=== PATIENT | male | born 1990 | race Caucasian/White ===

== ENCOUNTER 2023-04-08 18:17 | Emergency (ER) | payer OTHER, SELFPAY ==
[2023-04-08 18:21] VITALS: BP 138/107; PULSE 70; RESP 20; TEMP 36.3; O2SAT 98; BMI 36.9
[2023-04-08 19:00] LABS: Clarity Urine CLEAR (CLEAR); Color Urine DK. ORANGE (YELLOW); Specific Gravity Urine >=1.030 (1.005-1.025)
[2023-04-08 19:08] LABS: pH Urine COLOR INTERFERENCE (5.0-9.0)
[2023-04-08 19:09] LABS: Glucose Urine UA COLOR INTERFERENCE mg/dL (NEGATIVE); Protein Urine COLOR INTERFERENCE mg/dL (NEG/TRACE)
[2023-04-08 19:10] LABS: Bilirubin Urine COLOR INTERFERENCE (NEGATIVE)
--- NOTE | 2023-04-08 19:10 | CT_ITS ---
The [address] [address] Patient Name: EJ DEMPSEY MRN: [id number] date: 1990 Sex: M Assigned Patient Location: ER Current Patient Location: Accession/Order Number: [id number] Exam Date: 04/08/2023 19:15 Report Date: 04/08/2023 20:00 At the request of: JAKE MARKER Procedure: CT abdomen pelvis wo con EXAMINATION: CT ABDOMEN AND PELVIS WITHOUT IV CONTRAST CLINICAL HISTORY: Right flank pain TECHNIQUE: Non-IV contrast imaging of the abdomen and pelvis was performed using standard technique, scanning from just above the dome of the diaphragm to the symphysis pubis. Unenhanced imaging is limited for the evaluation of some intra-abdominal and pelvic pathology. All CT scans at this facility use dose modulation, iterative reconstruction, and/or weight based dosing when appropriate to reduce radiation dose to as low as reasonably achievable. Contrast: IV: None COMPARISON: None. RESULT: Abdomen / Pelvis: Liver: Unremarkable. Biliary: The gallbladder is unremarkable. Spleen: No splenomegaly. Pancreas: Unremarkable. Adrenals: Normal. Kidneys: No calculus, hydronephrosis or finding to suggest a cyst or mass in the unenhanced kidney. GI Tract: No bowel dilation. Normal appendix. No diverticulosis. Lymph Nodes: No lymphadenopathy. Mesentery/peritoneum: No ascites. Retroperitoneum: No mass. Vasculature: No abdominal aortic or iliac artery aneurysm. Pelvis: No mass or ascites. 4 mm posterior urinary bladder wall calculus. Bones/Soft Tissues: No acute abnormality. Lower thorax: Unremarkable. IMPRESSION: 4 mm posterior urinary bladder wall calculus. No renal calculi or hydronephrosis. Electronically authenticated by: DENG RUIZ Date: 04/08/2023 20:00
[2023-04-08 19:11] LABS: Blood Urine COLOR INTERFERENCE (NEGATIVE); Ketones Urine COLOR INTERFERENCE mg/dL (NEGATIVE); Nitrite Urine COLOR INTERFERENCE (NEGATIVE)
[2023-04-08 19:12] LABS: Leukocyte Esterase Urine COLOR INTERFERENCE (NEGATIVE); Urine Microscopic Indicated YES; Urobilinogen Urine COLOR INTERFERENCE EU/dL (0.2-1.0)
--- NOTE | 2023-04-08 19:25 | US_ITS ---
[address] [address] Patient Name: EJ DEMPSEY MRN: [id number] date: 1990 Sex: M Assigned Patient Location: ER Current Patient Location: Accession/Order Number: [id number] Exam Date: 04/08/2023 19:26 Report Date: 04/08/2023 20:16 At the request of: JAKE LOPEZ Procedure: US scrotum EXAMINATION: SCROTAL ULTRASOUND WITH DOPPLER IMAGING HISTORY: Right testicular pain TECHNIQUE: Sonography of the scrotal contents with color flow and spectral Doppler imaging of the testicular vasculature was performed. Images were obtained and stored in a permanent archive. COMPARISON: None RESULT: RIGHT SCROTUM: Right testis: 4.4 x 1.9 x 3.0 cm Homogeneous with no calcifications or mass. Normal intratesticular arterial and venous flow with normal spectral waveforms. Epididymis: Normal Vascular flow on Color Doppler is symmetric to the contralateral side Hydrocele: moderate hydrocele present; 3.3 x 0.9 x 0.7 cm Varicocele: absent LEFT SCROTUM: Left testis: 4.0 x 2.2 x 2.4 cm Homogeneous with no calcifications or mass. Normal intratesticular arterial and venous flow with normal spectral waveforms. Epididymis: Normal Vascular flow on Color Doppler is symmetric to the contralateral side Hydrocele: none Varicocele: present IMPRESSION: Small left varicocele and moderate right hydrocele. Normal arterial and venous flow within both testes. Electronically authenticated by: DENG RUIZ Date: 04/08/2023 20:16
[2023-04-08 19:27] LABS: Bacteria Urine SMALL #/HPF (NONE SEEN); Cast Seen? NONE SEEN #/LPF (NONE SEEN); Crystals Seen? None Seen #/HPF (None Seen); Mucus Urine SMALL (NONE SEEN); RBC Urine >100 #/HPF (0-2); Squamous Epithelial Cell Urine FEW #/LPF (NONE/RARE); WBC Urine 0-2 #/HPF (NONE SEEN)
[2023-04-08 19:28] LABS: Urine Culture Indicated YES
--- NOTE | 2023-04-08 19:28 | ED_ITS ---
HPI - General Adult General Chief complaint: Urogenital-Male Stated complaint: TESTICULAR PAIN Time Seen by Provider: 04/08/23 18:28 Source: patient Mode of arrival: walk-in Limitations: no limitations History of Present Illness HPI narrative: 32-year-old male with no significant medical history presents for evaluation of right-sided testicular pain that started yesterday and right flank pain that started earlier today. He does not have a history of kidney stones. He states his urine has been an orange color. He denies any penile pain. He denies any nausea or vomiting. He denies any chest pain or shortness of breath. He denies any heavy lifting cough or history of hernia. Related Data Home Medications Medication Instructions Recorded Confirmed No Known Home Medications 04/08/23 04/08/23 Allergies Allergy/AdvReac Type Severity Reaction Status Date / Time No Known Drug Allergies Allergy Verified 04/08/23 18:21 Review of Systems ROS Status of ROS 10 or more systems reviewed and unremarkable except as noted in history and below PFSH PFS Social History Smoking status: Never smoker Exam Constitutional Vital Signs - 24 hr 04/08/23 18:21 Temperature 97.4 F L Pulse Rate [Monitor] 70 Respiratory Rate 20 Blood Pressure [Right Arm] 138/107 H Pulse Oximetry 98 Oxygen Delivery Method Room Air vital signs reviewed and are normal, the patient is afebrile with a normal puls e, normal respiratory rate, blood pressure is mildly elevated at 138/107, he is not hypoxic with pulse ox of 98 percent on room air Documenting provider has reviewed patient's vital signs: yes Common normals: no apparent distress General appearance: cooperative and comfortable Nutritional appearance: overweight Orientation/consciousness: Yes awake, Yes oriented to person, Yes oriented to place and Yes oriented to time HENMT Common normals: normocephalic, head/scalp atraumatic and hearing grossly normal bilaterally Eye Common normals: PERRL, EOMs intact bilaterally and conjunctivae normal Chest Common normals: inspection of chest normal Respiratory Common normals: normal respiratory effort, no retractions, no use of accessory muscles and clear to auscultation bilaterally Effort & inspection: able to speak in complete sentences Cardio Common normals: no JVD, regular rate, regular rhythm, S1 normal heart sound, S2 normal heart sound, no gallops, no clicks, no murmurs and no rub GI Common normals: Normal to inspection, nondistended, normoactive bowel sounds present Inspection: other (Mild tenderness in right lower quadrant and along the distribution) Auscultation: normoactive bowel sounds Common normals: no CVA tenderness (Right lower lateral flank tenderness) Testes: testicular lie normal Other: Multiple testicular lie, cremasteric reflex is brisk and equal bilaterally, no appreciable hernia, right testicle is tender to palpation with no palpable masses, no penile discharge noted Back & Pelvis Common normals: no CVA tenderness (Right lower CVA tenderness) Lumbar spine/lower back: normal to inspection Course Course Hospital Course: Patient is feeling better after IV fluids and Toradol. Vital Signs Vital signs: Vital Signs Temperature 97.4 F L 04/08/23 18:21 Pulse Rate 70 04/08/23 18:21 Respiratory Rate 20 04/08/23 18:21 Blood Pressure 138/107 H 04/08/23 18:21 Pulse Oximetry 98 04/08/23 18:21 Oxygen Delivery Method Room Air 04/08/23 18:21 Temperature 97.4 F L 04/08/23 18:21 Pulse Rate 70 04/08/23 18:21 Respiratory Rate 20 04/08/23 18:21 Blood Pressure 138/107 H 04/08/23 18:21 Pulse Oximetry 98 04/08/23 18:21 Oxygen Delivery Method Room Air 04/08/23 18:21 Medical Decision Making MDM Narrative Medical decision making narrative: Is otherwise healthy 32-year-old male presents for evaluation of right flank pain and right testicular pain. Symptoms started last night. He denies any nausea or vomiting. He did take an Azo earlier in the day. He does not have a history of kidney stones. An IV was placed and he was medicated with IV fluids, and Toradol with clinical improvement. Routine labs are reviewed. He has a normal white count and hemoglobin. Urinalysis is negative for infection. CT scan of the abdomen and pelvis without contrast shows a 4 mm stone in the patient's bladder. Ultrasound of the testicles shows a hydrocele/varicocele. The results of the CT scan and ultrasound were given to the patient to have for his records. He'll be given 2 Percocet to take at home if he has ongoing pain however I did explain to him that he will likely not have an excessive amount of pain because the stone is in his bladder. Differential Diagnosis Differential Diagnosis: Kidney stone, testicular torsion, appendicitis, urinary tract infection Lab Data Labs: Lab Results 04/08/23 04/08/23 04/08/23 Range/Units 18:35 19:13 19:30 WBC 6.1 (4.0-11.0) 10^3/uL RBC 5.47 (4.70-6.10) 10^6/uL Hgb 16.0 (14.0-18.0) g/dL Hct 45.2 (42.0-54.0) % MCV 82.6 (80.0-94.0) fL MCH 29.3 (25.9-34.0) pg MCHC 35.4 H (29.9-35.2) g/dL RDW 12.3 (11.0-15.0) % Plt Count 268 (150-450) 10^3/uL MPV 9.2 L (9.5-13.5) fL Neut % (Auto) 58.2 (43.0-75.0) % Lymph % (Auto) 27.8 (20.5-60.0) % Adams % (Auto) 8.7 (1.7-12.0) % Eos % (Auto) 3.8 (0.9-7.0) % Baso % (Auto) 0.8 (0.2-2.0) % Neut # (Auto) 3.5 (1.4-6.5) 10^3/uL Lymph # (Auto) 1.7 (1.2-3.8) 10^3/uL Adams # (Auto) 0.5 (0.3-0.8) 10^3/uL Eos # (Auto) 0.2 (0.0-0.7) 10^3/uL Baso # (Auto) 0.1 (0.0-0.1) 10^3/uL Abs Immat Gran (auto) 0.04 H (0.00-0.03) 10^3/uL Imm/Tot Granulo (auto) 0.7 H (0.0-0.5) % Urine Color Dk. orange (YELLOW) Urine Clarity Clear (CLEAR) Urine pH Color interference A (5.0-9.0) Ur Specific [place] >=1.030 A (1.005-1.025) Urine Protein Color interference A (NEG/TRACE) mg/dL Urine Glucose (UA) Color interference A (NEGATIVE) mg/dL Urine Ketones Color interference A (NEGATIVE) mg/dL Urine Occult Blood Color interference A (NEGATIVE) Urine Nitrite Color interference A (NEGATIVE) Urine Bilirubin Color interference A (NEGATIVE) Urine Urobilinogen Color interference A (0.2-1.0) EU/dL Ur Leukocyte Esterase Color interference A (NEGATIVE) Urine RBC >100 A (0-2) #/HPF Urine WBC 0-2 A (NONE SEEN) #/HPF Ur Squamous Epith Cells Few A (NONE/RARE) #/LPF Urine Crystals None seen (None Seen) #/HPF Urine Bacteria Small A (NONE SEEN) #/HPF Urine Casts None seen (NONE SEEN) #/LPF Urine Mucus Small A (NONE SEEN) Ur Culture Indicated? Yes Discharge Plan Discharge Chief Complaint: Urogenital-Male Clinical Impression: Kidney calculi, Varicocele Patient Disposition: Home, Self-Care Mode of Transportation: Private Vehicle Prescriptions / Home Meds: No Action No Known Home Medications Print Language: Bengali Instructions: Kidney Stones (ED) Stand Alone Forms: Portal Instructions Referrals: Conor Coreas MD [Primary Care Provider] - 1 week
[2023-04-08] MEDS: KETOROLAC TROMETHAMINE 30 MG/ML VIAL IVP (19:36)
[2023-04-08] MEDS: 0.9 % SODIUM CHLORIDE 1,000 ML 1000 ML IV (19:36)
[2023-04-08 19:43] LABS: Basophils Absolute Auto 0.1 10^3/uL (0.0-0.1); Basophils Percent Auto 0.8 % (0.2-2.0); Eosinophils Absolute Auto 0.2 10^3/uL (0.0-0.7); Eosinophils Percent Auto 3.8 % (0.9-7.0); Hematocrit 45.2 % (42.0-54.0); Immature Granulocytes Abs Auto 0.04 10^3/uL (0.00-0.03); Immature Granulocytes Pct Auto 0.7 % (0.0-0.5); Lymphocytes Absolute Auto 1.7 10^3/uL (1.2-3.8); Lymphocytes Percent Auto 27.8 % (20.5-60.0); Mean Corpuscular HGB Conc 35.4 g/dL (29.9-35.2); Mean Corpuscular Hemoglobin 29.3 pg (25.9-34.0); Mean Corpuscular Volume 82.6 fL (80.0-94.0); Mean Platelet Volume 9.2 fL (9.5-13.5); Monocytes Absolute Auto 0.5 10^3/uL (0.3-0.8); Monocytes Percent Auto 8.7 % (1.7-12.0); Neutrophils Absolute Auto 3.5 10^3/uL (1.4-6.5); Neutrophils Percent Auto 58.2 % (43.0-75.0); Platelet Count 268 10^3/uL (150-450); Red Blood Count 5.47 10^6/uL (4.70-6.10); Red Cell Distribution Width 12.3 % (11.0-15.0); White Blood Count 6.1 10^3/uL (4.0-11.0)
[2023-04-08 20:01] LABS: Alanine Aminotransferase 61 U/L (16-63); Albumin Globulin Ratio 1.1; Albumin Level 4.1 g/dL (3.4-5.0); Alkaline Phosphatase 97 U/L (46-116); Anion Gap 11.1; Aspartate Amino Transferase 27 U/L (15-37); BUN Creatinine Ratio 14.6; Bilirubin Total 0.5 mg/dL (0.2-1.0); Calcium 8.9 mg/dL (8.5-10.1); Carbon Dioxide 29.1 mmol/L (21.0-32.0); Chloride 104 mmol/L (98-107); Estimated GFR (African America >60 (>=60); Estimated GFR (Non-African Ame >60 (>=60); Globulin 3.7 g/dL; Glucose 108 mg/dL (74-106); Potassium 4.2 mmol/L (3.5-5.1); Sodium 140 mmol/L (136-145); Total Protein 7.8 g/dL (6.4-8.2)
== END 2023-04-08 21:21 | disposition home or self-care (01) ==
PROVIDERS: Emergency Medicine; Emergency Provider Emergency Medicine; PCP Family Medicine
DX: I86.1 Scrotal varices (principal); N20.0 Calculus of kidney; N43.3 Hydrocele, unspecified
CPT/HCPCS: 36415; 74176; 76870; 80053; 81003; 81015; 85025; 87086; 99285